=== PATIENT | female | born 1995 | race Two or more races ===

== ENCOUNTER 2018-02-08 20:31 | Emergency (ER) | payer MEDICAID, OTHER ==
[~2018-02-08] VITALS: Ht 167.6 cm; Wt 61.8 kg
[2018-02-08 22:28] VITALS: BP 121/75
== END 2018-02-08 22:30 | disposition home or self-care (01) ==
LOC: ER 20:32
DX: N93.9 Abnormal uterine and vaginal bleeding, unspecified (principal)
CPT/HCPCS: 99283